=== PATIENT | male | born 1980 | race Asian ===

== ENCOUNTER 2023-03-11 23:42 | Inpatient (IN) | payer MEDICAID, OTHER ==
[~2023-03-11] VITALS: Ht 170.2 cm; Wt 63.5 kg
[~2023-03-11 23:42] MED LIST: DIVA500T69 PO; QUET200T PO
[2023-03-12 02:17] LABS: BASOPHILS % (AUTO) 0.4 % (0.0-2.0); EOSINOPHILS % (AUTO) 1.2 % (1.0-6.0); HEMATOCRIT 40.7 % (41-53); HEMOGLOBIN 14.3 g/dL (13.5-17.5); LYMPHOCYTES # (AUTO) 2.7 K/uL (1.0-4.8); LYMPHOCYTES % (AUTO) 26.5 % (22.0-44.0); MEAN CORPUSCULAR HEMOGLOBIN 33.3 pg (26.0-34.0); MEAN CORPUSCULAR HGB CONC 35.2 G/dL (31.0-37.0); MEAN CORPUSCULAR VOLUME 95 fL (80-100); MONOCYTES # (AUTO) 0.8 K/uL (0.1-1.0); MONOCYTES % (AUTO) 7.8 % (2.0-9.0); NEUTROPHILS # (AUTO) 6.6 K/uL (1.8-7.7); NEUTROPHILS % (AUTO) 64.1 % (40.0-70.0); PLATELET COUNT (AUTO) 408 K/uL (150-450); RED CELL DISTRIBUTION WIDTH 12.9 % (11.5-14.5); WHITE BLOOD COUNT (AUTO) 10.3 K/uL (4.5-11.0)
[2023-03-12 02:26] LABS: ANION GAP 2 mmol/L (8-16); CALCIUM, TOTAL 9.1 mg/dL (8.8-10.5); CARBON DIOXIDE 33 mmol/L (22-29); CHLORIDE 103 mmol/L (98-107); GLOMERULAR FILTR. RATE CALC > 60 mL/min (>60); GLUCOSE,RANDOM 388 mg/dL (70-110); POTASSIUM 4.2 mmol/L (3.5-5.1); SODIUM SERUM 138 mmol/L (136-145); UREA NITROGEN, BLOOD 13 mg/dL (7-18)
[2023-03-12 02:30] LABS: AMPHET/METH SCREEN,URINE NEGATIVE (NEGATIVE); BARBITURATE SCREEN, URINE NEGATIVE (NEGATIVE); BENZODIAZEPINES SCREEN,URINE NEGATIVE (NEGATIVE); CANNABINOID SCREEN,URINE POSITIVE (NEGATIVE); COCAINE SCREEN,URINE NEGATIVE (NEGATIVE); METHADONE SCREEN, URINE NEGATIVE (NEGATIVE); OPIATE SCREEN,URINE NEGATIVE (NEGATIVE); PHENCYCLIDINE SCREEN,URINE NEGATIVE (NEGATIVE)
[2023-03-12 02:33] LABS: ALANINE AMINOTRANSFERASE 27 U/L (12-78); ALBUMIN 3.3 g/dL (3.4-5.0); ALKALINE PHOSPHATASE 96 U/L (46-116); ASPARTATE AMINOTRANSFERASE 16 U/L (15-37); BILIRUBIN,TOTAL 0.3 mg/dL (0.1-1.0); TOTAL PROTEIN, SERUM 7.9 g/dL (6.4-8.2)
[2023-03-12 02:48] LABS: ALCOHOL, BLOOD (SERUM) < 3 mg/dL (0-10)
[2023-03-12 02:48] LABS: ALCOHOL, URINE DRUG SCREEN NEGATIVE (NEGATIVE)
[2023-03-12 02:50] LABS: COVID AG,FIA SOURCE NASAL SWAB
[2023-03-12 03:10] LABS: SARS-COV2 (COVID) ANTIGEN,FIA Negative (Negative)
[2023-03-12] MEDS ORDERED: HALOPERIDOL 5 MG TABLET PO PRN (07:15)
[2023-03-12] MEDS ORDERED: LORazepam 2 MG TABLET PO PRN (07:15)
[2023-03-12] MEDS ORDERED: HALOPERIDOL LACTATE 5 MG/ML VIAL IM ONE (10:15)
[2023-03-12] MEDS ORDERED: LORazepam 2 MG/ML VIAL IM ONE (10:15)
[2023-03-12] MEDS ORDERED: DiphenhydrAMINE HCL 50 MG/ML VIAL IM ONE (10:15)
[2023-03-12] MEDS ORDERED: METF-81 PO (10:40)
[2023-03-12] MEDS ORDERED: EMPA10TA3 PO (10:40)
[2023-03-12] MEDS ORDERED: DEXTROSE 50%-WATER 25 GM/50 ML SYRINGE IVP PRN (11:15)
[2023-03-12] MEDS: INSULIN LISPRO 100 UNITS/ML SQ PRN ×2 (11:34→21:13)
[2023-03-12 15:03] VITALS: BP 140/85; PULSE 80; RESP 18; TEMP 98; O2SAT 97
[2023-03-12] MEDS ORDERED: ACETAMINOPHEN 325 MG TABLET PO PRN (17:15)
[2023-03-12] MEDS ORDERED: ONDANSETRON HCL 4 MG TABLET PO PRN (17:15)
[2023-03-12] MEDS ORDERED: LOPERAMIDE HCL 2 MG CAPSULE PO PRN (17:15)
[2023-03-12] MEDS ORDERED: MAGNESIUM HYDROXIDE SUSPENSION 30 ML UDCUP PO PRN (17:15)
[2023-03-12] MEDS ORDERED: ALBUTEROL SULFATE HFA 90 MCG/PUFF 8 GM INHALER IH PRN (17:15)
[2023-03-12] MEDS ORDERED: MAG HYDROX/ALUMINUM HYD/SIMETH ES 30 ML SUSPENSION UDCUP PO PRN (17:15)
[2023-03-12] MEDS ORDERED: PETROLATUM,WHITE 28 GM JELLY TP PRN (17:15)
[2023-03-12] MEDS ORDERED: DOCUSATE SODIUM 100 MG CAPSULE PO PRN (17:15)
[2023-03-12] MEDS ORDERED: CloNIDine HCL 0.1 MG TABLET PO PRN (17:15)
[2023-03-12] MEDS ORDERED: OMEPRAZOLE 20 MG CAPSULE PO PRN (17:15)
[2023-03-12] MEDS ORDERED: BACITRACIN 28 GM OINTMENT TP PRN (17:15)
[2023-03-12] MEDS ORDERED: IBUPROFEN 600 MG TABLET PO PRN (17:15)
[2023-03-12] MEDS ORDERED: BENZOCAINE/MENTHOL LOZENGE PO PRN (17:15)
[2023-03-12] MEDS: MetFORMIN HCL 500 MG ER TABLET PO SCH (18:24)
[2023-03-12 18:37] LABS: GLUCOMETER DEV NAME(LOC) 3EX.2; GLUCOSE,POINT OF CARE 238 MG/DL (70-110)
[2023-03-12 20:26] LABS: GLUCOMETER DEV NAME(LOC) 3EX.2; GLUCOSE,POINT OF CARE 311 MG/DL (70-110)
[2023-03-12 21:41] VITALS: RESP 18
[2023-03-12] MEDS: ZOLPIDEM TARTRATE 10 MG TABLET PO PRN (22:27)
[2023-03-13 06:07] LABS: GLUCOMETER DEV NAME(LOC) 3EX.2; GLUCOSE,POINT OF CARE 289 MG/DL (70-110)
[2023-03-13] MEDS: MetFORMIN HCL 500 MG ER TABLET PO SCH ×2 (06:42→17:01)
[2023-03-13] MEDS: INSULIN LISPRO 100 UNITS/ML SQ PRN ×4 (06:43→21:03)
[2023-03-13] MEDS: EMPAGLIFLOZIN 10 MG TABLET PO SCH (08:16)
[2023-03-13] MEDS: ROSUVASTATIN CALCIUM 10 MG TABLET PO SCH (08:16)
[2023-03-13 11:46] LABS: GLUCOMETER DEV NAME(LOC) 3EX.2; GLUCOSE,POINT OF CARE 317 MG/DL (70-110)
[2023-03-13 15:00] VITALS: BP 139/88; PULSE 115; RESP 18; TEMP 97; O2SAT 98
[2023-03-13] MEDS: DIVALPROEX SODIUM 500 MG DR TABLET PO SCH (17:01)
[2023-03-13 17:17] LABS: GLUCOMETER DEV NAME(LOC) 3EX.2; GLUCOSE,POINT OF CARE 333 MG/DL (70-110)
[2023-03-13 20:49] VITALS: RESP 18; O2SAT 98
[2023-03-13 20:51] LABS: GLUCOMETER DEV NAME(LOC) 3EX.2; GLUCOSE,POINT OF CARE 232 MG/DL (70-110)
[2023-03-13] MEDS: QUEtiapine FUMARATE 200 MG TABLET PO SCH (20:54)
[2023-03-14] MEDS: MetFORMIN HCL 500 MG ER TABLET PO SCH ×2 (06:51→16:47)
[2023-03-14 07:16] LABS: GLUCOMETER DEV NAME(LOC) 3EX.2; GLUCOSE,POINT OF CARE 208 MG/DL (70-110)
[2023-03-14] MEDS: INSULIN LISPRO 100 UNITS/ML SQ PRN ×4 (07:18→21:17)
[2023-03-14] MEDS: ROSUVASTATIN CALCIUM 10 MG TABLET PO SCH (08:16)
[2023-03-14] MEDS: EMPAGLIFLOZIN 10 MG TABLET PO SCH (08:16)
[2023-03-14] MEDS: DIVALPROEX SODIUM 500 MG DR TABLET PO SCH ×3 (08:16→16:47)
[2023-03-14 09:53] VITALS: BP 116/82; PULSE 113; RESP 17; TEMP 97.5; O2SAT 99
[2023-03-14 11:16] LABS: GLUCOMETER DEV NAME(LOC) 3EX.2; GLUCOSE,POINT OF CARE 362 MG/DL (70-110)
[2023-03-14] MEDS ORDERED: LORazepam 2 MG/ML VIAL IM ONE (13:30)
[2023-03-14] MEDS ORDERED: DiphenhydrAMINE HCL 50 MG/ML VIAL IM ONE (13:30)
[2023-03-14] MEDS ORDERED: HALOPERIDOL LACTATE 5 MG/ML VIAL IM ONE (13:30)
[2023-03-14 17:36] LABS: GLUCOMETER DEV NAME(LOC) 3EX.2; GLUCOSE,POINT OF CARE 166 MG/DL (70-110)
[2023-03-14] MEDS: QUEtiapine FUMARATE 200 MG TABLET PO SCH (20:45)
[2023-03-14 20:46] LABS: GLUCOMETER DEV NAME(LOC) 3EX.2; GLUCOSE,POINT OF CARE 171 MG/DL (70-110)
[2023-03-14 22:11] VITALS: RESP 18
[2023-03-15 05:47] LABS: GLUCOMETER DEV NAME(LOC) 3EX.2; GLUCOSE,POINT OF CARE 352 MG/DL (70-110)
[2023-03-15] MEDS: INSULIN LISPRO 100 UNITS/ML SQ PRN ×4 (06:50→21:10)
[2023-03-15] MEDS: MetFORMIN HCL 500 MG ER TABLET PO SCH ×2 (07:03→17:15)
[2023-03-15] MEDS: DIVALPROEX SODIUM 500 MG DR TABLET PO SCH ×3 (07:57→16:30)
[2023-03-15] MEDS: ROSUVASTATIN CALCIUM 10 MG TABLET PO SCH (07:57)
[2023-03-15] MEDS: EMPAGLIFLOZIN 10 MG TABLET PO SCH (07:58)
[2023-03-15 08:26] VITALS: BP 147/82; PULSE 100; RESP 17; TEMP 96.2; O2SAT 98
[2023-03-15 11:56] LABS: GLUCOMETER DEV NAME(LOC) 3EX.2; GLUCOSE,POINT OF CARE 251 MG/DL (70-110)
[2023-03-15 16:26] LABS: GLUCOMETER DEV NAME(LOC) 3EX.2; GLUCOSE,POINT OF CARE 327 MG/DL (70-110)
[2023-03-15] MEDS: QUEtiapine FUMARATE 200 MG TABLET PO SCH (20:15)
[2023-03-15 20:21] LABS: GLUCOMETER DEV NAME(LOC) 3EX.2; GLUCOSE,POINT OF CARE 269 MG/DL (70-110)
[2023-03-15 20:40] VITALS: RESP 18
[2023-03-15] MEDS: ZOLPIDEM TARTRATE 10 MG TABLET PO PRN (22:19)
[2023-03-16 06:26] LABS: GLUCOMETER DEV NAME(LOC) 3EX.2; GLUCOSE,POINT OF CARE 247 MG/DL (70-110)
[2023-03-16] MEDS: MetFORMIN HCL 500 MG ER TABLET PO SCH ×2 (06:40→17:09)
[2023-03-16] MEDS: INSULIN LISPRO 100 UNITS/ML SQ PRN ×3 (06:41→17:10)
[2023-03-16 08:14] VITALS: BP 134/70; PULSE 110; RESP 18; TEMP 96.8; O2SAT 98
[2023-03-16] MEDS: DIVALPROEX SODIUM 500 MG DR TABLET PO SCH ×3 (08:58→17:09)
[2023-03-16] MEDS: ROSUVASTATIN CALCIUM 10 MG TABLET PO SCH (08:58)
[2023-03-16] MEDS: EMPAGLIFLOZIN 10 MG TABLET PO SCH (08:58)
[2023-03-16 11:31] LABS: GLUCOMETER DEV NAME(LOC) 3EX.2; GLUCOSE,POINT OF CARE 190 MG/DL (70-110)
[2023-03-16] MEDS ORDERED: DIVA500T53 PO (15:35)
[2023-03-16] MEDS ORDERED: QUET200T PO (15:38)
[2023-03-16 16:26] LABS: GLUCOMETER DEV NAME(LOC) 3EX.2; GLUCOSE,POINT OF CARE 186 MG/DL (70-110)
== END 2023-03-16 17:00 | disposition home or self-care (01) | DRG 750 ==
LOC: EMS 23:43 → 3EC 03-12 08:46
PROVIDERS: ADMIT Psychiatry & Neurology Psychiatry; ATTEND Psychiatry & Neurology Psychiatry
DX: F20.9 Schizophrenia, unspecified (principal); E11.65 Type 2 diabetes mellitus with hyperglycemia; F41.9 Anxiety disorder, unspecified; Z20.822 Contact with and (suspected) exposure to COVID-19; G47.00 Insomnia, unspecified; K59.00 Constipation, unspecified; E78.5 Hyperlipidemia, unspecified; F12.90 Cannabis use, unspecified, uncomplicated; Z78.1 Physical restraint status
CPT/HCPCS: 80053; 80307; 82962; 85025; 99285; G0480; J1200; J1630; J1815; J2060; Q9967